=== PATIENT | female | born 1960 | race Caucasian/White ===

== ENCOUNTER 2020-08-16 09:59 | Emergency (ER) | payer BC ==
[~2020-08-16] VITALS: Ht 154.9 cm; Wt 52.2 kg
[2020-08-16] MEDS ORDERED: AMITRIPTYLINE H10 MG PO (10:19)
[2020-08-16] MEDS ORDERED: VENTOLIN HFA18 GM INH (10:20)
[2020-08-16] MEDS ORDERED: SUMATRIPTAN SU100 MG PO (10:20)
[2020-08-16] MEDS ORDERED: LEVOTHYROXINE75 MCG PO (10:20)
[2020-08-16] MEDS ORDERED: LIOTHYRONINE SO5 MCG PO (10:20)
[2020-08-16] MEDS ORDERED: EPIN0.3P IM (12:16)
== END 2020-08-16 12:39 | disposition home or self-care (01) ==
LOC: ED 09:59
DX: T63.441A Toxic effect of venom of bees, accidental (unintentional), initial encounter (principal); G43.909 Migraine, unspecified, not intractable, without status migrainosus; E03.9 Hypothyroidism, unspecified; Z87.891 Personal history of nicotine dependence; Z79.899 Other long term (current) drug therapy; Z91.040 Latex allergy status; Z91.030 Bee allergy status
CPT/HCPCS: 96374; 96375; 99284-25; J1100; J1200; J2405; J7030